=== PATIENT | male | born 1990 | race Caucasian/White ===

== ENCOUNTER 2021-06-25 09:20 | Outpatient (CLI) | payer BC, SELFPAY ==
--- NOTE | ~2021-06-25 | XR_ITS ---
EXAMINATION: XR wrist LT min 3V DATE: 06/25/2021 10:29 INDICATION: Radial sided left wrist pain. TECHNIQUE: 4 views of left wrist were obtained. COMPARISON: None. FINDINGS: Bone alignment is normal. No fracture. Joint spaces are well maintained. IMPRESSION: 1. No fracture. Reviewed, dictated and finalized at location B. IMPRESSION: 1. No fracture.
[2021-06-25 09:59] LABS: Alanine Aminotransferase 105 U/L (4-50); Albumin Level 4.3 g/dL (3.5-5.1); Alkaline Phosphatase 120 U/L (38-126); Anion Gap 6 mmol/L (8-16); Aspartate Amino Transferase 81 U/L (17-59); Bilirubin,Total 0.7 mg/dL (0.2-1.3); Blood Urea Nitrogen 18 mg/dL (9-20); Calcium 9.1 mg/dL (8.4-10.2); Carbon Dioxide 22 mmol/L (22-30); Chloride 107 mmol/L (98-107); Estimated Glomerular Filt Rate > 60; Glucose 144 mg/dL (65-110); Potassium 3.6 mmol/L (3.4-5.0); Sodium 135 mmol/L (137-145); Uric Acid 6.6 mg/dL (3.5-8.5)
== END 2021-06-25 09:21 | disposition home or self-care (01) ==
PROVIDERS: Visit Provider Physician Assistant
DX: M1A.9XX0 Chronic gout, unspecified, without tophus (tophi) (principal)
CPT/HCPCS: 36415; 73110; 80053; 84550

== ENCOUNTER 2023-06-13 16:27 | Emergency (ER) | payer BC, SELFPAY ==
[2023-06-13 16:37] VITALS: BP 108/67; PULSE 70; RESP 16; TEMP 36.6; O2SAT 99
--- NOTE | 2023-06-13 16:44 | ED.WOUNDLAC ---
HPI - Wound/Laceration General Chief Complaint: Wound/Laceration Stated Complaint: SUTURE REMOVAL Time Seen by Provider: 06/13/23 16:44 Source: patient Mode of arrival: ambulatory Limitations: no limitations History of Present Illness HPI narrative: 32-year-old male presents to have sutures removed from left thumb. Cut himself with his pocket knife approximately 10 days ago. Patient reports redness, swelling and pain to wound x3 days. All systems reviewed and negative except as noted above. Related Data Home Medications Medication Instructions Recorded Confirmed meloxicam 15 mg tablet 15 mg PO PRN PRN Pain (Scale Score 06/13/23 06/13/23 4-6) Allergies Allergy/AdvReac Type Severity Reaction Status Date / Time diphenhydramine Allergy Mild RASH Verified 06/13/23 16:34 Review of Systems Review of Systems: CONSTITUTIONAL: Denies fever, chills, or sweats. EYES: Denies visual changes, redness, or discharge. ENT: Denies rhinorrhea, congestion, sore throat, or otalgia. CARDIOVASCULAR: Denies chest pain, palpitations, or edema. RESPIRATORY: Denies cough or dyspnea. GASTROINTESTINAL: Denies abdominal pain, nausea, vomiting, or diarrhea. GENITOURINARY: Denies dysuria or hematuria. SKIN: Denies rash or itching. Reports redness, swelling and pain to laceration left thumb. Three sutures [address] place. MUSCULOSKELETAL: Denies back pain, joint pain, or myalgia. NEUROLOGIC: Denies headache, numbness, or weakness. PSYCHIATRIC: Denies anxiety or depression. All other systems reviewed are negative, except as documented in HPI. PMFSH Comments At time of signature, agree with nursing past medical, surgical, social and family history. There is no relevant family history pertinent to the presenting complaint. Exam Narrative: GENERAL: This is a well-nourished, well-developed patient, in no apparent distress. HEAD: normocephalic, atraumatic. EYES: PERRL. Sclera clear/white. Vision is grossly intact. EARS: External ears normal NOSE: External nose normal NECK: Neck supple, non-tender without lymphadenopathy, masses or thyromegaly. CARDIOVASCULAR: Regular rate and rhythm without murmurs, gallops, or rubs. RESPIRATORY: Clear to auscultation. Breath sounds equal bilaterally. No wheezes, rales, or rhonchi. SKIN: warm, Dry, intact with no suspicious lesions or rash, good texture and turgor. healing laceration to L thumb. 3 sutures removed without wound dehiscence. erythema, swelling and tenderness on palpation. NEURO: awake, alert, and oriented to person, place and time. There were no obvious focal neurologic abnormalities. EXTREMITIES: No joint tenderness, effusion, or edema noted. Course Course Level of Care: Express Care Visit Vital Signs Vital signs: Vital Signs Temperature 36.6 C 06/13/23 16:37 Pulse Rate 70 06/13/23 16:37 Respiratory Rate 16 06/13/23 16:37 Blood Pressure 108/67 06/13/23 16:37 Pulse Oximetry 99 06/13/23 16:37 Temperature 36.6 C 06/13/23 16:37 Pulse Rate 70 06/13/23 16:37 Respiratory Rate 16 06/13/23 16:37 Blood Pressure 108/67 06/13/23 16:37 Pulse Oximetry 99 06/13/23 16:37 Reviewed MDM - Wound/Laceration MDM Narrative Medical decision making narrative: Patient is aware of diagnosis, understands and agrees to treatment plan. Anticipatory guidance given. Patient agrees to follow-up as directed and is aware of reasons to seek care at the emergency department. Portions of this record may have been created with voice recognition software Discharge Plan Discharge Clinical Impression: Visit for suture removal, Wound infection Patient Disposition: Home, Self-Care Condition: Stable Instructions: Stitches Removal (ED) Additional Instructions: Three sutures removed from your left thumb today. Take antibiotics as prescribed until gone. Keep wound clean and dry. Take ibuprofen or Tylenol as needed for pain. Follow-up with your primary care physic
== END 2023-06-13 16:54 | disposition home or self-care (01) ==
PROVIDERS: Emergency Provider Nurse Practitioner Family
DX: S61.012D Laceration without foreign body of left thumb without damage to nail, subsequent encounter (principal); W26.0XXD Contact with knife, subsequent encounter
CPT/HCPCS: 99213; G0463